=== PATIENT | female | born 1980 | race Caucasian/White ===

== ENCOUNTER → 2016-11-04 | Outpatient (CLI) | payer BC, OTHER ==
[~2016-11-04] MED LIST: FAMO20TA9 PO; IBUP600T44 PO; PRENTAB26 PO; SYN25 PO
[2016-11-04 13:40] LABS: THYROID STIMULATING HORMONE 0.259 uIu/ml (0.300-4.500)
== END | disposition home or self-care (01) ==
LOC: C.LABPBG 11:11
PROVIDERS: ATTEND Internal Medicine Endocrinology, Diabetes & Metabolism
DX: E55.9 Vitamin D deficiency, unspecified (principal); E03.9 Hypothyroidism, unspecified

== ENCOUNTER → 2016-12-09 | Outpatient (CLI) | payer BC, OTHER | END | disposition home or self-care (01) | LOC: C.LABPBG 08:31 | PROVIDERS: ATTEND Physician Assistant | DX: Z86.32 Personal history of gestational diabetes (principal) ==

== ENCOUNTER → 2017-08-23 | Outpatient (CLI) | payer BC, OTHER ==
[2017-08-23 12:48] LABS: THYROID STIMULATING HORMONE 0.394 uIu/ml (0.300-4.500)
== END | disposition home or self-care (01) ==
LOC: C.LABPBG 08:47
PROVIDERS: ATTEND Physician Assistant
DX: E03.9 Hypothyroidism, unspecified (principal)